=== PATIENT | female | born 1980 | race African-American/Black ===

== ENCOUNTER 2021-04-01 13:25 | Inpatient (IN) | payer OTHER ==
[~2021-04-01] VITALS: Ht 152.4 cm; Wt 75.7 kg
[2021-04-01] MEDS ORDERED: LACTATED RINGER'S 1,000 ML IV ONE (14:00)
[2021-04-01] MEDS ORDERED: LACTATED RINGER'S 1,000 ML IV SCH (14:00)
[2021-04-01] MEDS ORDERED: hydrALAZINE HCL 20 MG/ML VL ONE (14:06)
[2021-04-01] MEDS ORDERED: BETAMETHASONE ACET (30mg/5ml) 5ml Vial 6mg/ml ONE (14:07)
[2021-04-01] MEDS ORDERED: ceFAZolin 1GM/50ML 50 ML IV ONE (14:07)
[2021-04-01] MEDS ORDERED: hydrALAZINE HCL 20 MG/ML VL IV PRN (14:15)
[2021-04-01] MEDS ORDERED: BETAMETHASONE ACET (30mg/5ml) 5ml Vial 6mg/ml IM ONE (14:15)
[2021-04-01] MEDS ORDERED: NIFEdipine 10 MG CAP ONE (14:27)
[2021-04-01] MEDS ORDERED: NIFEdipine 10 MG CAP PO ONE (14:30)
[2021-04-01 14:35] LABS: Basophils # (auto) 0.1 10 ^3/uL (0-0.2); Monocytes # (auto) 0.8 10 ^3/uL (0-1.3); Nucleated Red Blood Cells % 0.1 %
[2021-04-01 14:37] LABS: Basophils % (auto) 0.7 % (0.0-2.0); Eosinophils # (auto) 0 10 ^3/uL (0-0.8); Eosinophils % (auto) 0.4 % (0.0-7.0); Lymphocytes # (auto) 2.5 10 ^3/uL (0.4-5.4); Lymphocytes % (auto) 23.8 % (10.0-50.0); Mean Corpuscular Hemoglobin 22.6 pg (28.0-32.0); Mean Corpuscular Hgb Conc. 31.8 g/dL (32.0-36.0); Monocytes % (auto) 7.9 % (0.0-12.0); Neutrophils % (auto) 67.2 % (37.0-80.0); Red Blood Cells 3.52 10^6/uL (4.0-5.20); Red Cell Distribution Width 16.2 % (11.8-14.3); White Blood Cell 10.4 10^3/uL (4.4-10.8)
[2021-04-01 14:51] LABS: INR 0.92 (0.9-1.15); Partial Thromboplastin Time 26.5 sec (23.0-31.2)
[2021-04-01 14:52] LABS: Albumin 2.4 g/dL (3.4-5.0); Calcium 8.3 mg/dL (8.5-10.1); Potassium 3.2 mmol/L (3.5-5.1)
[2021-04-01 14:57] LABS: BUN/Creatinine Ratio 17.9; Bilirubin, Total 0.3 mg/dL (0.2-1.0); Total Protein 7.4 g/dL (6.4-8.2); Uric Acid 4.1 mg/dL (2.6-6.0)
[2021-04-01] MEDS ORDERED: TERBUTALINE SULFATE 1 MG/ML 1ML VIAL SC ONE (15:02)
[2021-04-01] MEDS: TERBUTALINE SULFATE 1 MG/ML 1ML VIAL SC SCH ×3 (15:02→17:37)
[2021-04-01] MEDS ORDERED: POTASSIUM CHL 20 Meq TABLET PO ONE (15:15)
[2021-04-01 15:22] LABS: Urine Bacteria NONE SEEN /hpf (None Seen); Urine Blood Negative /uL (Negative); Urine Mucus FEW (None Seen); Urine Specific Gravity 1.017 (1.001-1.035); Urine WBC 14 /hpf (0 - 5)
[2021-04-01 15:30] LABS: Amphetamine Screen, Urine NEGATIVE (NEGATIVE); Barbiturate Scree,Urine NEGATIVE (NEGATIVE); Benzodiazephine Screen, Urine NEGATIVE (NEGATIVE); Cannabinoid Screen, Urine NEGATIVE (NEGATIVE); Cocaine Screen, Urine NEGATIVE (NEGATIVE); Opiate Scree,Urine NEGATIVE (NEGATIVE); Phencyclidine Screen, Urine NEGATIVE (NEGATIVE)
[2021-04-01 15:44] LABS: Protein, Urine 31.1 mg/dL (0.0-11.9)
[2021-04-01] MEDS ORDERED: ceFAZolin 1GM/50ML 50 ML IV SCH (22:00)
== END 2021-04-01 18:45 | disposition short-term general hospital (02) | DRG 566 ==
LOC: LDRP 13:25 → OBSVTOIN 14:24
PROVIDERS: ADMIT Specialist; ATTEND Specialist
DX: O42.913 Preterm premature rupture of membranes, unspecified as to length of time between rupture and onset of labor, third trimester (principal); O14.93 Unspecified pre-eclampsia, third trimester; Z3A.34 34 weeks gestation of pregnancy; O99.013 Anemia complicating pregnancy, third trimester; D64.9 Anemia, unspecified; O09.523 Supervision of elderly multigravida, third trimester; Z20.822 Contact with and (suspected) exposure to COVID-19; Z88.6 Allergy status to analgesic agent
CPT/HCPCS: 36415; 59025; 76805; 76817; 80053; 80307; 81001; 81002; 82570; 84112; 84156; 84550; 85025; 85610; 85730; 86850; 86900; 86901; 87426; 94760; 96361; 96365; 96372; G0378; J0690